=== PATIENT | female | born 1995 | race Caucasian/White ===

== ENCOUNTER 2022-01-02 19:28 | Emergency (ER) | payer OTHER ==
[~2022-01-02] VITALS: Ht 165.1 cm; Wt 44.0 kg
[2022-01-02 22:20] VITALS: BP 123/71
== END 2022-01-02 22:00 | disposition home or self-care (01) ==
LOC: ER 19:35
DX: R07.89 Other chest pain (principal); F41.9 Anxiety disorder, unspecified; Z88.0 Allergy status to penicillin
CPT/HCPCS: 71045; 81025; 93005; 99283

== ENCOUNTER 2022-06-11 07:20 | Emergency (ER) | payer OTHER ==
[~2022-06-11] VITALS: Ht 165.1 cm; Wt 48.0 kg
[2022-06-11] MEDS ORDERED: ACETAMINOPHEN 325MG TABLET PO ONE (10:00)
[2022-06-11] MEDS ORDERED: KETOROLAC 60MG/2ML VIAL IM ONE (10:00)
[2022-06-11 11:50] VITALS: BP 126/75
== END 2022-06-11 11:51 | disposition home or self-care (01) ==
LOC: ER 07:20
DX: R51.9 Headache, unspecified (principal); F41.9 Anxiety disorder, unspecified; Z88.0 Allergy status to penicillin
CPT/HCPCS: 81025; 82962; 96372; 99283; J1885